=== PATIENT | male | born 1935 | race American Indian/Alaskan Native ===

== ENCOUNTER 2017-06-25 10:38 | Inpatient (IN) | payer MEDICARE ==
--- NOTE | 2017-06-25 11:39 | ED PDOC ---
Arrival/HPI - General Chief Complaint: Chest Pain Time Seen by Provider: 06/25/17 10:50 Historian: Patient - History of Present Illness Narrative History of Present Illness (Text): 06/25/17 10:47 A 82 year old male, whose past medical history includes hypertension, bronchitis , pneumonia, stomach CA (chemotherapy and radiation), DVT on Coudmadin, presents to the emergency department complaining of intermittent central chest pain for 4 days. Patient reports pain has increased in frequency for the past 2 days which comes and goes. Describes pain as "swallowing a walnut", 8/10 severity. Patient notes also experiencing cough with clear phlegm and some pain upon palpitation. Patient denies any fever, chills, vomiting, shortness of breath, or any other complaints at this time. Also, patient denies any history of cardiac stents, obtaining a stress test recently, nor does patient have a news camera operator. PMD: Dr. Worrell Time/Duration: < week (4 days, pain has increased in frequency for past 2 days) Symptom Onset: Sudden Symptom Course: Unchanged Severity Level: 8 Past Medical History - Provider Review Nursing Documentation Reviewed: Yes - Tetanus Immunization Tetanus Immunization: Up to Date - Cardiac Hx Hypertension: Yes - Musculoskeletal/Rheumatological Hx Back Pain: Yes Hx Herniated Disk: Yes Hx Spinal Stenosis: Yes - Psychiatric Hx Depression: No Hx Emotional Abuse: No Hx Physical Abuse: No Hx Substance Use: No - Past Surgical History Past Surgical History: No Previous - Surgical History Hx Orthopedic Surgery: Yes Other/Comment: 1997 tumor from bladder removed - Suicidal Assessment Feels Threatened In Home Enviroment: No Family/Social History - Physician Review Nursing Documentation Reviewed: Yes Family/Social History: No Known Family HX Smoking Status: Never Smoked Hx Alcohol Use: No Amount per day: 6 Hx Substance Use: No Hx Substance Use Treatment: No Allergies/Home Meds Allergies/Adverse Reactions: Allergies No Known Allergies Allergy (Verified 03/31/16 14:28) Home Medications: Home Meds Medication Instructions Recorded Confirmed Aspirin [Adult Low Dose Aspirin EC] 162 mg PO DAILY 06/25/17 06/25/17 Atorvastatin [Lipitor] 40 mg PO DAILY 06/25/17 06/25/17 Finasteride [Proscar] 5 mg PO DAILY 06/25/17 06/25/17 Gabapentin [Neurontin] 100 mg PO BID 06/25/17 06/25/17 Montelukast [Singulair] 10 mg PO DAILY 06/25/17 06/25/17 Warfarin [Coumadin] 5 mg PO DAILY 06/25/17 06/25/17 amLODIPine [Norvasc] 5 mg PO DAILY 06/25/17 06/25/17 Review of Systems - Physician Review All systems were reviewed & negative as marked: Yes - Review of Systems Constitutional: absent: Fevers, Night Sweats Respiratory: Cough (coughing with clera phlegm ). absent: SOB Cardiovascular: Chest Pain (intermittent central chest pain described as "swallowing a walnut"; 8/10 severity) Gastrointestinal: Abdominal Pain (epigastric pain to palpation). absent: Vomiting Physical Exam Vital Signs Reviewed: Yes Vital Signs Temp Pulse Resp BP Pulse Ox 06/25/17 10:49 97.8 F 76 16 145/97 H 100 Temperature: Afebrile Blood Pressure: Normal Pulse: Regular Respiratory Rate: Normal Appearance: Positive for: Other (thin) Pain Distress: None Mental Status: Positive for: Alert and Oriented X 3 - Systems Exam Head: Present: Atraumatic, Normocephalic Pupils: Present: PERRL Extroacular Muscles: Present: EOMI Conjunctiva: Present: Normal Mouth: Present: Moist Mucous Membranes Neck: Present: Normal Range of Motion Respiratory/Chest: Present: Clear to Auscultation, Good Air Exchange. No: Respiratory Distress, Accessory Muscle Use Cardiovascular: Present: Murmurs (2/6 murmur), Irregular Rhythm Abdomen: Present: Other (epigastric pain upon palpation) Back: Present: Normal Inspection Upper Extremity: Present: Normal Inspection. No: Cyanosis, Edema Lower Extremity: Present: Edema (trace edemea b/l) Neurological: Present: GCS=15, CN II-XII Intact, Speech Normal Skin: Present: Warm, Dry, Normal Color. No: Rashes Psychiatric: Present: Alert, Oriented x 3, Normal Insight, Normal Concentration Medical Decision Making ED Course and Treatment: 06/25/17 10:52 Impression: 82 year old male with intermittent central chest pain. Physical exam shows 2/6 murmur with irregularly irregular rhythm; trace edema b/l in legs ; epigastric pain to palpation; patient appears thin and of stated age. Differential Diagnosis included but are not limited to: Esophogitis vs. Worsening Mestasizing Cancer vs. Aortic dissection vs. New Onset Atrial Fibrillation. Plan: -- EKG -- Chest X-ray -- Labs -- Aspirin -- Nitroglycerin -- Reassess and disposition Prior Visits: Notes and results from previous visits were reviewed. Patient was last seen in the emergency department on 03/31/2016 for on and off coughing. Patient was d/c home. Progress Notes: EKG: Ordered, reviewed, and independently interpreted the EKG. Rate : 77 BPM Rhythm : Sinus rhythm Interpretation : Few PVCs, irregularly irregular, multi focal atopic. Comparison : No previous EKG for comparison. 06/25/17 11:40 Patient experiencing relief from Nitroglcerin. mild anemia will admit for cheat pain obs due with likely cardiac 06/25/17 12:54 - Lab Interpretations Lab Results: 06/25/17 12:40 06/25/17 11:35 Lab Results 06/25/17 12:40: WBC 3.3 L D, RBC 3.99, Hgb 12.2 L, Hct 37.5 L, MCV 94.0, MCH 30.6, MCHC 32.5, RDW 14.6 H, Plt Count 99 L, MPV 9.5, Gran % 61.3, Lymph % (Auto ) 10.1 L, [place] % (Auto) 14.0 H, Eos % (Auto) 14.3 H, Baso % (Auto) 0.3, Gran # 2.01, Lymph # 0.3 L, [place] # 0.5, Eos # 0.5, Baso # 0.01 06/25/17 11:35: Sodium 142, Potassium 4.4, Chloride 108 H, Carbon Dioxide 26, Anion Gap 12, BUN 30 H, Creatinine 1.4, Est GFR ( Amer) 59, Est GFR (Non- Af Amer) 48, Random Glucose 146 H, Calcium 9.1, Lactate Dehydrogenase 760 H, Total Creatine Kinase 175, Troponin I < 0.01 06/25/17 11:35: PT 45.4 H, INR 4.01 H*, APTT 44.7 H I have reviewed the lab results: Yes - RAD Interpretation Radiology Orders: 06/25/17 10:52 CHEST TWO VIEWS (PA/LAT) [RAD] Stat - Medication Orders Current Medication Orders: Nitroglycerin (Nitrostat Sl Tab) 0.4 mg SL Q5M PRN PRN Reason: Pain, moderate (4-7) Stop: 06/25/17 23:59 Last Admin: 06/25/17 11:10 Dose: 0.4 mg Discontinued Medications Aspirin (Aspirin Chewable) 324 mg PO STAT STA Stop: 06/25/17 10:54 Last Admin: 06/25/17 11:10 Dose: 162 mg Comments: Dose cut down to 162 mg As per verbal order from Dr. Aguilar. - Scribe Statement The provider has reviewed the documentation as recorded by the Sajan Welch Provider Scribe Attestation: All medical record entries made by the Scribe were at my direction and personally dictated by me. I have reviewed the chart and agree that the record accurately reflects my personal performance of the history, physical exam, medical decision making, and the department course for this patient. I have also personally directed, reviewed, and agree with the discharge instructions and disposition. Disposition/Present on Arrival - Present on Arrival Any Indicators Present on Arrival: No History of DVT/PE: Yes History of Uncontrolled Diabetes: No Urinary Catheter: No History of Decub. Ulcer: No History Surgical Site Infection Following: None - Disposition Have Diagnosis and Disposition been Completed?: Yes Diagnosis: Chest pain Disposition: HOSPITALIZED Disposition Time: 13:21 Patient Plan: Observation Condition: GOOD Discharge Instructions (ExitCare): Chest Pain (ED) Referrals: Nohemi Marie MD [Primary Care Provider] - Follow up with primary Forms: [employer] ([place])
[2017-06-25 12:06] LABS: CALCIUM 9.1 mg/dL (8.4-10.5)
[2017-06-25 12:12] LABS: BLOOD UREA NITROGEN 30 mg/dL (7-21); GFR AFRICAN-AMERICAN 59; GFR NON-AFRICAN AMERICAN 48
[2017-06-25 12:14] LABS: PARTIAL THROMBOPLASTIN TIME 44.7 Seconds (25.1-36.5); PROTHROMBIN TIME 45.4 SECONDS (9.4-12.5); TROPONIN I < 0.01 ng/mL
[2017-06-25 12:16] LABS: INR 4.01 (0.93-1.08)
[2017-06-25 12:52] LABS: BASO # 0.01 K/mm3 (0.0-2.0); BASO % 0.3 % (0.0-3.0); EOS # 0.5 (0.0-0.7); EOS % 14.3 % (1.5-5.0); GRAN # 2.01 (1.4-6.5); GRAN % 61.3 % (50.0-68.0); HEMOGLOBIN 12.2 g/dL (14.0-18.0); LYMPH # 0.3 (1.2-3.4); LYMPH % 10.1 % (22.0-35.0); MEAN CORPUSCULAR HEMOGLOBIN 30.6 pg (25.0-35.0); MEAN CORPUSCULAR HGB CONC 32.5 g/dl (31.0-37.0); MEAN PLATELET VOLUME 9.5 fl (7.0-11.0); MONO # 0.5 (0.1-0.6); RBC 3.99 10^6/uL (3.5-6.1); RED CELL DISTRIBUTION WIDTH 14.6 % (11.5-14.5); WHITE BLOOD COUNT 3.3 10^3/ul (4.5-11.0)
--- NOTE | 2017-06-25 13:21 | RAD ---
HISTORY: COMPARISON: 03/31/2016 TECHNIQUE: Chest PA and lateral FINDINGS: LINES AND TUBES: None. LUNG AND PLEURA: The lungs are well inflated and clear. HEART AND MEDIASTINUM: The heart is not enlarged. There is unfolding of the aorta. The hilar and mediastinal contours are within normal limits. SKELETAL STRUCTURES: The bony structures are within normal limits for the patient's age. VISUALIZED UPPER ABDOMEN: Normal. OTHER FINDINGS: None. IMPRESSION: No active pulmonary disease.
--- NOTE | 2017-06-25 15:21 | CP.PCM.HP ---
<Arnulfo Keith - Last Filed: 06/25/17 15:00> History of Present Illness - History of Present Illness History of Present Illness: CC: Chest Pain HPI: Pt is an 82 yo male with PMH of HTN, DM, bronchitis, pneumonia, DVT on coumadin, bladder CA, and gastric carcinoma currently being treated with chemo and radiation presents with a 7 day history of mid-sternal chest pain. Pt states that pain does not radiate and is intermittent with increased frequency over the last 2 days. Chest pain is not worsened with exertion. Pt also complains of difficulty swallowing and feels like he is "swallowing a walnut". Pt states that difficulty in swallowing started about 3 weeks ago, which was concurrent with the start of his radiation therapy for gastric CA. The gastric CA was diagnosed 1 year ago, in which he is being treated with chemo and radiation. Pt states that sometimes it feels like it starts in his epigastric region and moves upwards into his sternum. Pt also states that epigastric pain is worsened by PO intake of both solids and liquids and subsequently has eaten less over the last 3 weeks. Overall, patient states he has lost 30 lbs since his diagnosis of gastric CA. Pt states that he has tried using Alkaseltzer, which improves his symptoms for only 15 minutes. Pt admits to decreased taste 2/ 2 radiation therapy. Pt denies pain in his esophagus or neck region. Patient denies any nausea, vomiting, diarrhea, fever, chills, MORENO, or dizziness. PMH: As above PSH: Bladder CA resection, Left index fracture repair All: NKDA FHx: Non-contributory SH: Former 1/2 ppd smoker for 40 yrs (quit 1997), denied EtOH and illicit drug use PMD: Raoul Sultana Onc: Kath Matos Present on Admission - Present on Admission Any Indicators Present on Admission: No Review of Systems - Review of Systems Review of Systems: 12 point ROS reviewed and is negative other than what is stated in HPI. Past Patient History - Tetanus Immunizations Tetanus Immunization: Up to Date - Past Social History Smoking Status: Never Smoked - CARDIAC Hx Hypertension: Yes - MUSCULOSKELETAL/RHEUMATOLOGICAL Hx Back Pain: Yes Hx Herniated Disk: Yes Hx Spinal Stenosis: Yes - PSYCHIATRIC Hx Depression: No Hx Emotional Abuse: No Hx Physical Abuse: No Hx Substance Use: No - SURGICAL HISTORY Hx Orthopedic Surgery: Yes Other/Comment: 1997 tumor from bladder removed Meds Allergies/Adverse Reactions: Allergies Allergy/AdvReac Type Severity Reaction Status Date / Time No Known Allergies Allergy Verified 03/31/16 14:28 Physical Exam - Constitutional Appears: No Acute Distress - Head Exam Head Exam: NORMAL INSPECTION - Eye Exam Eye Exam: Normal appearance - ENT Exam ENT Exam: Normal Exam - Neck Exam Neck exam: Positive for: Normal Inspection - Respiratory Exam Respiratory Exam: Clear to Auscultation Bilateral. absent: Accessory Muscle Use , Rales, Rhonchi, Wheezes, Respiratory Distress - Cardiovascular Exam Cardiovascular Exam: Irregular Rhythm, +S1, +S2. absent: Diastolic murmur, Gallop, Rubs, Systolic Murmur - GI/Abdominal Exam GI & Abdominal Exam: Soft. absent: Distended, Guarding, Organomegaly, Rebound, Tenderness - Extremities Exam Extremities exam: Positive for: normal inspection - Back Exam Back exam: NORMAL INSPECTION - Neurological Exam Neurological exam: Alert, Oriented x3 - Psychiatric Exam Psychiatric exam: Normal Affect, Normal Mood - Skin Skin Exam: Dry, Intact, Normal Color, Warm Results - Vital Signs Recent Vital Signs: Last Vital Signs Temp 97.8 F 06/25/17 10:49 Pulse 76 06/25/17 14:43 Resp 16 06/25/17 14:43 BP 136/76 06/25/17 14:43 Pulse Ox 99 06/25/17 14:43 - Labs Result Diagrams: 06/25/17 12:40 06/25/17 11:35 Assessment & Plan - Assessment and Plan (Free Text) Assessment: 82 yo M with PMH HTN, DM, bronchitis, pneumonia, DVT on coumadin, bladder CA, and gastric carcinoma currently being treated with chemo and radiation admitted for evaluation and treatment for CP r/o ACS and dysphagia likely 2/2 radiation therapy. Plan: 1. CP r/o ACS - Cardio consulted - Repeat EKG - Troponin x1 negative, f/u trend x2 - Lipid panel, HgbA1c, Echo ordered - ASA 81 mg daily - Lipitor 40 mg daily 2. Dysphagia 2/2 radiation therapy - GI consulted - Per oncology, no radiation therapy for 1 week, f/u with Dr. Matos as outpatient - Pepcid - Morphine for severe pain 3. Atrial Fibrillation - EKG showed a-fib, will repeat EKG - Lopressor 5 mg IVP BID - No AC at this time due to supratherapeutic INR - TSH ordered 4. R/o Aortic Aneurysm - CXR showed unfolding of aorta - CT chest without contrast due to high-normal creatinine 5. Supratherapeutic INR - Anticoaguation due to h/o DVT - Hold Coumadin - Monitor INR, resume with INR is therapeutic 6. HTN - Cont Norvasc GI/DVT PPx - Pepcid - No AC at this time due to supratherapeutic INR Pt seen and discussed in detail with Dr. Noyola. Danny Keith, PGY1 <Skip Noyola B - Last Filed: 06/26/17 14:57> Results - Vital Signs Recent Vital Signs: Last Vital Signs Temp 98.6 F 06/26/17 12:00 Pulse 66 06/26/17 12:00 Resp 18 06/26/17 12:00 BP 128/86 06/26/17 12:00 Pulse Ox 99 06/26/17 06:00 - Labs Result Diagrams: 06/26/17 05:50 06/26/17 05:50 Labs: Laboratory Results - last 24 hr 06/25/17 06/25/17 06/25/17 15:30 17:30 20:05 WBC RBC Hgb Hct MCV MCH MCHC RDW Plt Count MPV PT INR APTT Sodium Potassium Chloride Carbon Dioxide Anion Gap BUN Creatinine Est GFR ( Amer) Est GFR (Non-Af Amer) POC Glucose (mg/dL) 72 Random Glucose Hemoglobin A1c 6.3 Calcium Total Bilirubin AST ALT Alkaline Phosphatase Troponin I 0.02 D Total Protein Albumin Globulin Albumin/Globulin Ratio 06/25/17 06/26/17 06/26/17 21:22 05:50 05:50 WBC 2.8 L* RBC 4.01 Hgb 12.1 L Hct 37.1 L MCV 92.5 MCH 30.2 MCHC 32.6 RDW 14.6 H Plt Count 98 L MPV 9.7 PT INR APTT Sodium 143 Potassium 4.4 Chloride 108 H Carbon Dioxide 26 Anion Gap 13 BUN 24 H Creatinine 1.4 Est GFR ( Amer) 59 Est GFR (Non-Af Amer) 48 POC Glucose (mg/dL) 87 Random Glucose 99 Hemoglobin A1c Calcium 9.1 Total Bilirubin 0.6 AST 32 ALT 33 Alkaline Phosphatase 71 Troponin I < 0.01 D Total Protein 6.7 Albumin 3.6 Globulin 3.1 Albumin/Globulin Ratio 1.2 06/26/17 06/26/17 05:50 07:41 WBC RBC Hgb Hct MCV MCH MCHC RDW Plt Count MPV PT 47.5 H INR 4.19 H* APTT 41.0 H Sodium Potassium Chloride Carbon Dioxide Anion Gap BUN Creatinine Est GFR ( Amer) Est GFR (Non-Af Amer) POC Glucose (mg/dL) 79 Random Glucose Hemoglobin A1c Calcium Total Bilirubin AST ALT Alkaline Phosphatase Troponin I Total Protein Albumin Globulin Albumin/Globulin Ratio Attending/Attestation - Attestation I have personally seen and examined this patient.: Yes I have fully participated in the care of the patient.: Yes I have reviewed all pertinent clinical information: Yes Notes (Text): I have seen and examined the patient at bedside. 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 He feels as if he is swallowing a walnut. Patient states that he has to drink lot of water or liquids to push food down. Will do work up for ACS. EKG was reviewed. Will consult GI. Primary oncologist was consulted who is planning to hold off on radiation for at least 1 week. Upon discharge patient will follow up with Dr Raoul Sultana and Dr Kath Matos. Dr Skip Noyola
[2017-06-25 15:28] LABS: HDL CHOLESTEROL 50 mg/dL (29-60)
[2017-06-25] MEDS ORDERED: Morphine 2 mg/ml ISec IVP PRN (15:29)
[2017-06-25 15:38] LABS: LDL CHOLESTEROL 39 mg/dL (0-129)
[2017-06-25 16:46] VITALS: BMI 25.0
--- NOTE | 2017-06-25 17:34 | CARD ---
APPROVED REPORT EKG Measurement Heart [id number] <Conclusion> Sinus rhythm with premature atrial complexes Left axis deviation Inferior infarct, age undetermined Abnormal ECG
--- NOTE | 2017-06-25 17:40 | CARD ---
APPROVED REPORT EKG Measurement Heart [id number] <Conclusion> sinus rhythm with Atrial bigeminy Inferior infarct, age undetermined Possible Anterior infarct, age undetermined Abnormal ECG
[2017-06-25] MEDS ORDERED: Metoprolol 1 mg/ml Inj IVP SCH (18:00)
--- NOTE | 2017-06-26 01:01 | CON ---
DATE: 06/25/2017 LOCATION: Room 373, bed 2. REASON FOR CONSULTATION: Chest pain. HISTORY OF PRESENT ILLNESS: The patient is an 82-year-old male who known to have gastric carcinoma, completed radiation therapy, still getting chemotherapy, history of DVT, on Coumadin, hypertension, diabetes, admitted with history that since last seven days or so the patient is getting chest pain. Chest pain starts in the lower one third of the sternum and travels downward to the epigastrium. Once the pain reaches epigastrium, it disappears, a total duration of pain is around 1 minute or so and it feels like as if solid thing is traveling lower one third of sternum to the epigastrium, it happens six to seven times a day. Sometimes, he feels nausea, but denies any vomiting. No history of black stools or diarrhea. Also he feels same pain sometime on deep breathing and as well as swallowing. Denies any relation of this chest pain to exertion. The patient known to have diabetes and high blood pressure since last two years. PAST MEDICAL HISTORY: Positive for carcinoma of the stomach, finished radiation therapy, getting chemotherapy, diabetes mellitus, high blood pressure, 15 years ago, he had tumor from the urinary bladder removed. According to the patient, he was told it was not cancer. He states he has twice endoscopy. PERSONAL HISTORY: He used to smoke half-pack a day till 1997. He used to drink heavy till 25 years ago, stopped since then. ALLERGIES: DENIES ANY ALLERGIES. MEDICATION AT HOME: The patient was taking Proscar 5 mg daily, warfarin 5 mg daily, Neurontin 100 mg b.i.d., Lipitor 40 mg daily, Norvasc 5 mg daily, Singulair 10 mg daily, aspirin adult low dose 162 mg daily. REVIEW OF SYSTEMS: All the system reviewed positive mentioned in the history otherwise negative. PHYSICAL EXAMINATION: VITAL SIGNS: Blood pressure 130/70, respirations 18, pulse 63, and temperature 98.2. HEENT: Normocephalic. Eyes; pupils are normal. Conjunctivae normal. NECK: JVP low. Carotids equal. THORAX: AP diameter normal. LUNGS: Clear. CARDIOVASCULAR: S1 and S2. ABDOMEN: Tenderness in the epigastric area. EXTREMITIES: No clubbing. No cyanosis. LABORATORY DATA: WBC 3.3, hemoglobin 12.2, hematocrit 37.5, and platelet 99. Sodium 142, potassium 4.4, BUN 30, and creatinine 1.4, calcium 9.1. Random glucose 146. Repeat fingerstick glucose 72. Troponin less than 0.01. TSH 2.09, cholesterol 108, triglyceride 59, LDL 39, HDL 50. EKG shows regular sinus rhythm with left anterior hemiblock. Chest x-ray, no active pulmonary disease. Prothrombin done 45.4, INR 4.01, PTT 44.7. DIAGNOSES: Chest pain, which seem to be of gastrointestinal region, most likely episodes of artificial spasm. Carcinoma of the stomach status post radiation therapy, still getting chemotherapy, hypertension, diabetes mellitus, history of thrombophlebitis, anemia, leukopenia, and thrombocytopenia. Elevated PT/INR. PLAN: The patient is on aspirin 81 mg daily, Lipitor 40 mg daily, Neurontin 100 mg b.i.d., amlodipine 5 mg daily, Proscar 5 mg daily, Singulair 10 mg daily. The patient is on Lopressor 5 mg IV b.i.d., we will discontinue it. notes states that the patient on EKG has atrial fibrillation, but EKG, which I reviewed showed sinus rhythm with PAC's, so we will discontinue Lopressor 5 mg IV b.i.d. Echo has been already requested, so we will follow the echo report. In the meantime, GI consult has been also requested. I agree with that. This pain is of GI region. We will continue to follow with you. Carrie Haley MD
[2017-06-26 07:20] LABS: PROTHROMBIN TIME 47.5 SECONDS (9.4-12.5)
[2017-06-26 07:21] LABS: HEMOGLOBIN 12.1 g/dL (14.0-18.0); MEAN CELL VOLUME 92.5 fl (80.0-105.0); MEAN CORPUSCULAR HEMOGLOBIN 30.2 pg (25.0-35.0); MEAN CORPUSCULAR HGB CONC 32.6 g/dl (31.0-37.0); MEAN PLATELET VOLUME 9.7 fl (7.0-11.0); RBC 4.01 10^6/uL (3.5-6.1); RED CELL DISTRIBUTION WIDTH 14.6 % (11.5-14.5)
[2017-06-26 07:27] LABS: ALB/GLOB RATIO 1.2 (1.1-1.8); ALBUMIN 3.6 g/dL (3.0-4.8); ALT/SGPT 33 U/L (7-56); AST/SGOT 32 U/L (17-59); BLOOD UREA NITROGEN 24 mg/dL (7-21); CALCIUM 9.1 mg/dL (8.4-10.5); GFR AFRICAN-AMERICAN 59; GFR NON-AFRICAN AMERICAN 48
[2017-06-26 07:30] LABS: TROPONIN I < 0.01 ng/mL
[2017-06-26 07:33] LABS: INR 4.19 (0.93-1.08)
[2017-06-26 07:55] LABS: WHITE BLOOD COUNT 2.8 10^3/ul (4.5-11.0)
--- NOTE | 2017-06-26 09:19 | CT ---
PROCEDURE: CT Chest without contrast HISTORY: r/o aortic aneurysm COMPARISON: None. TECHNIQUE: Contiguous axial images were obtained through the chest without intravenous contrast enhancement. Sagittal and coronal reconstructions were performed. Radiation dose (DLP): mGy-cm. This CT exam was performed using one or more of the following dose reduction techniques: Automated exposure control, adjustment of the mA and/or kV according to patient size, and/or use of iterative reconstruction technique. FINDINGS: LUNGS: There is no focal consolidation. No lung nodules. Finding suggestive of COPD MEDIASTINUM: The thoracic aorta is mildly dilated and tortuous. The ascending aorta measures 4 cm and the descending 3 cm in diameter. There is no focal aneurysm Normal sized heart. No lymphadenopathy. PLEURA: No pleural fluid. No pneumothorax. BONES: No fracture. No destructive lesion. UPPER ABDOMEN: Multiple gallstones OTHER FINDINGS: None. IMPRESSION: Mildly dilated and tortuous aorta. No focal aneurysm
--- NOTE | 2017-06-26 11:46 | CP.PCM.CON ---
<Evelyne Lea - Last Filed: 06/26/17 14:32> History of Present Illness - History of Present Illness History of Present Illness: PGY4 Initial GI Consult Marshall Padilla is an 82 yo male with a hx of HTN, DM, bronchitis, pneumonia, DVT on coumadin, bladder CA, and gastric carcinoma currently being treated with chemo and radiation who presents with epigastric pain upon eating. He notes that the pain started 2 weeks ago, but progressively worsened. Pt states that pain does not radiate and is intermittent after solid food consumption. Pt also complains of difficulty swallowing and feels like he is "swallowing a walnut". As per pt, He was diagnoised with gastric cancer 6 months ago. He has been getting radiation therapy with chemo. Last radiation therapy was 1 week prior and he states that he had >10 already. He was able to eat a heart healthy diet in the AM without difficulty. No dysphagia noted with liquids. Overall, patient states he has lost 30 lbs since his diagnosis of gastric CA. Pt states that he has tried using Alkaseltzer, which improves his symptoms for only 15 minutes. Pt admits to decreased taste 2/2 radiation therapy. Pt denies pain in his esophagus or neck region. Patient denies any nausea, vomiting, diarrhea, fever, chills, MORENO, or dizziness. PMH: As above PSH: Bladder CA resection, Left index fracture repair FHx: Non-contributory SH: Former 1/2 ppd smoker for 40 yrs (quit 1997), denied EtOH and illicit drug use ROS: 12point ROS conducted, neg other than above Past Patient History - Tetanus Immunizations Tetanus Immunization: Up to Date - Past Social History Smoking Status: Former Smoker - CARDIAC Hx Hypertension: Yes - PULMONARY Hx Respiratory Disorders: No - NEUROLOGICAL Hx Neurological Disorder: No - HEENT Hx HEENT Problems: No - RENAL Hx Chronic Kidney Disease: No - ENDOCRINE/METABOLIC Hx Diabetes Mellitus Type 2: Yes - HEMATOLOGICAL/ONCOLOGICAL Hx Chemotherapy: Yes - INTEGUMENTARY Hx Dermatological Problems: No - MUSCULOSKELETAL/RHEUMATOLOGICAL Hx Falls: No Hx Spinal Stenosis: Yes - GASTROINTESTINAL Hx Gastrointestinal Disorders: Yes Other/Comment: bladder ca,gastric carcinoma - GENITOURINARY/GYNECOLOGICAL Hx Genitourinary Disorders: No - PSYCHIATRIC Hx Psychophysiologic Disorder: No Hx Substance Use: No - SURGICAL HISTORY Hx Surgeries: Yes Other/Comment: 1997 tumor from bladder removed Meds Allergies/Adverse Reactions: Allergies Allergy/AdvReac Type Severity Reaction Status Date / Time No Known Allergies Allergy Verified 03/31/16 14:28 - Medications Medications: Current Medications Acetaminophen (Tylenol 325mg Tab) 650 mg PO Q6H PRN PRN Reason: Pain, Mild (1-3) Amlodipine Besylate (Norvasc) 5 mg PO DAILY [facility] Last Admin: 06/26/17 11:22 Dose: 5 mg Aspirin (Ecotrin) 81 mg PO DAILY [facility] Last Admin: 06/26/17 11:22 Dose: 81 mg Atorvastatin Calcium (Lipitor) 40 mg PO DIN [facility] Famotidine (Pepcid) 40 mg PO HS [facility] Last Admin: 06/25/17 21:48 Dose: 40 mg Finasteride (Proscar) 5 mg PO HS [facility] Last Admin: 06/25/17 21:48 Dose: 5 mg Gabapentin (Neurontin) 100 mg PO BID [facility] PRN Reason: Protocol Last Admin: 06/26/17 11:22 Dose: 100 mg Montelukast Sodium (Singulair) 10 mg PO DAILY [facility] Last Admin: 06/26/17 11:22 Dose: 10 mg Morphine Sulfate (Morphine) 1 mg IVP Q6H PRN PRN Reason: Pain, severe (8-10) Results - Vital Signs Recent Vital Signs: Last Vital Signs Temp 98.6 F 06/26/17 06:00 Pulse 70 06/26/17 11:22 Resp 20 06/26/17 06:00 BP 119/86 06/26/17 11:22 Pulse Ox 99 06/26/17 06:00 - Labs Result Diagrams: 06/26/17 05:50 06/26/17 05:50 Labs: Laboratory Results - last 24 hr 06/25/17 06/25/17 06/25/17 15:30 17:30 20:05 WBC RBC Hgb Hct MCV MCH MCHC RDW Plt Count MPV PT INR APTT Sodium Potassium Chloride Carbon Dioxide Anion Gap BUN Creatinine Est GFR ( Amer) Est GFR (Non-Af Amer) POC Glucose (mg/dL) 72 Random Glucose Hemoglobin A1c 6.3 Calcium Total Bilirubin AST ALT Alkaline Phosphatase Troponin I 0.02 D Total Protein Albumin Globulin Albumin/Globulin Ratio 06/25/17 06/26/17 06/26/17 21:22 05:50 05:50 WBC 2.8 L* RBC 4.01 Hgb 12.1 L Hct 37.1 L MCV 92.5 MCH 30.2 MCHC 32.6 RDW 14.6 H Plt Count 98 L MPV 9.7 PT INR APTT Sodium 143 Potassium 4.4 Chloride 108 H Carbon Dioxide 26 Anion Gap 13 BUN 24 H Creatinine 1.4 Est GFR ( Amer) 59 Est GFR (Non-Af Amer) 48 POC Glucose (mg/dL) 87 Random Glucose 99 Hemoglobin A1c Calcium 9.1 Total Bilirubin 0.6 AST 32 ALT 33 Alkaline Phosphatase 71 Troponin I < 0.01 D Total Protein 6.7 Albumin 3.6 Globulin 3.1 Albumin/Globulin Ratio 1.2 06/26/17 06/26/17 05:50 07:41 WBC RBC Hgb Hct MCV MCH MCHC RDW Plt Count MPV PT 47.5 H INR 4.19 H* APTT 41.0 H Sodium Potassium Chloride Carbon Dioxide Anion Gap BUN Creatinine Est GFR ( Amer) Est GFR (Non-Af Amer) POC Glucose (mg/dL) 79 Random Glucose Hemoglobin A1c Calcium Total Bilirubin AST ALT Alkaline Phosphatase Troponin I Total Protein Albumin Globulin Albumin/Globulin Ratio Assessment & Plan - Assessment and Plan (Free Text) Assessment: Marshall Padilla is a 82M w/ hx of gastric cancer who presents to the ER with complaints of dysphagia Dysphagia, r/o stricture, PUD, malignancy. DDx: motility GERD Constipation Gastric Carcinoma? Plan: -suposed to get an EGD today, but pt ate in the AM -continue full liquids -NPO after midnight -continue PPI zofran PRN -will do EGD tomorrow, pending pt's dicussion with -will try to get records from oncologist Will D/W Dr. Barger <Rafael Barger - Last Filed: 06/26/17 14:56> Meds - Medications Medications: Current Medications Acetaminophen (Tylenol 325mg Tab) 650 mg PO Q6H PRN PRN Reason: Pain, Mild (1-3) Amlodipine Besylate (Norvasc) 5 mg PO DAILY [facility] Last Admin: 06/26/17 11:22 Dose: 5 mg Aspirin (Ecotrin) 81 mg PO DAILY [facility] Last Admin: 06/26/17 11:22 Dose: 81 mg Atorvastatin Calcium (Lipitor) 40 mg PO DIN [facility] Famotidine (Pepcid) 40 mg PO HS [facility] Last Admin: 06/25/17 21:48 Dose: 40 mg Finasteride (Proscar) 5 mg PO HS [facility] Last Admin: 06/25/17 21:48 Dose: 5 mg Gabapentin (Neurontin) 100 mg PO BID [facility] PRN Reason: Protocol Last Admin: 06/26/17 11:22 Dose: 100 mg Montelukast Sodium (Singulair) 10 mg PO DAILY [facility] Last Admin: 06/26/17 11:22 Dose: 10 mg Morphine Sulfate (Morphine) 1 mg IVP Q6H PRN PRN Reason: Pain, severe (8-10) Results - Vital Signs Recent Vital Signs: Last Vital Signs Temp 98.6 F 06/26/17 12:00 Pulse 66 06/26/17 12:00 Resp 18 06/26/17 12:00 BP 128/86 06/26/17 12:00 Pulse Ox 99 06/26/17 06:00 - Labs Result Diagrams: 06/26/17 05:50 06/26/17 05:50 Labs: Laboratory Results - last 24 hr 06/25/17 06/25/17 06/25/17 15:30 17:30 20:05 WBC RBC Hgb Hct MCV MCH MCHC RDW Plt Count MPV PT INR APTT Sodium Potassium Chloride Carbon Dioxide Anion Gap BUN Creatinine Est GFR ( Amer) Est GFR (Non-Af Amer) POC Glucose (mg/dL) 72 Random Glucose Hemoglobin A1c 6.3 Calcium Total Bilirubin AST ALT Alkaline Phosphatase Troponin I 0.02 D Total Protein Albumin Globulin Albumin/Globulin Ratio 06/25/17 06/26/17 06/26/17 21:22 05:50 05:50 WBC 2.8 L* RBC 4.01 Hgb 12.1 L Hct 37.1 L MCV 92.5 MCH 30.2 MCHC 32.6 RDW 14.6 H Plt Count 98 L MPV 9.7 PT INR APTT Sodium 143 Potassium 4.4 Chloride 108 H Carbon Dioxide 26 Anion Gap 13 BUN 24 H Creatinine 1.4 Est GFR ( Amer) 59 Est GFR (Non-Af Amer) 48 POC Glucose (mg/dL) 87 Random Glucose 99 Hemoglobin A1c Calcium 9.1 Total Bilirubin 0.6 AST 32 ALT 33 Alkaline Phosphatase 71 Troponin I < 0.01 D Total Protein 6.7 Albumin 3.6 Globulin 3.1 Albumin/Globulin Ratio 1.2 06/26/17 06/26/17 05:50 07:41 WBC RBC Hgb Hct MCV MCH MCHC RDW Plt Count MPV PT 47.5 H INR 4.19 H* APTT 41.0 H Sodium Potassium Chloride Carbon Dioxide Anion Gap BUN Creatinine Est GFR ( Amer) Est GFR (Non-Af Amer) POC Glucose (mg/dL) 79 Random Glucose Hemoglobin A1c Calcium Total Bilirubin AST ALT Alkaline Phosphatase Troponin I Total Protein Albumin Globulin Albumin/Globulin Ratio Attending/Attestation - Attestation I have personally seen and examined this patient.: Yes I have fully participated in the care of the patient.: Yes I have reviewed all pertinent clinical information: Yes Notes (Text): 06/26/17 14:55 82 year old male with h/o gastric ca on chemo/xrt admitted with chest pain/ dysphagia. 1. Gastric cancer 2. Odynophagia Plan: -recommend protonix 40 mg IV BID -liquid diet today -npo after MN for egd tomorrow -hold coumadin -goal INR < 1.5 for procedure -likely to need FFP preop
--- NOTE | 2017-06-26 12:38 | CP.PCM.PN ---
<Arnulfo Keith - Last Filed: 06/26/17 12:34> Subjective - Date & Time of Evaluation Date of Evaluation: 06/26/17 Time of Evaluation: 12:35 - Subjective Subjective: Medicine Progress Note Pt seen and examined at bedside. No acute overnight events. Pt states that he tolerate diet well. However, he still has epigastric pain that radiates to sternum not related to PO intake. Pt denied SOB, nausea, vomiting, diarrhea, fever, chills, MORENO, or dizziness. Objective - Vital Signs/Intake and Output Vital Signs (last 24 hours): Temp Pulse Resp BP Pulse Ox 98.6 F 66 18 128/86 99 06/26/17 12:00 06/26/17 12:00 06/26/17 12:00 06/26/17 12:00 06/26/17 06:00 Intake and Output: 06/26/17 06/26/17 06:59 18:59 Intake Total 0 Output Total 450 Balance -450 - Medications Medications: Current Medications Acetaminophen (Tylenol 325mg Tab) 650 mg PO Q6H PRN PRN Reason: Pain, Mild (1-3) Amlodipine Besylate (Norvasc) 5 mg PO DAILY [facility] [place] Last Admin: 06/26/17 11:22 Dose: 5 mg Aspirin (Ecotrin) 81 mg PO DAILY [facility] [place] Last Admin: 06/26/17 11:22 Dose: 81 mg Atorvastatin Calcium (Lipitor) 40 mg PO DIN [facility] Famotidine (Pepcid) 40 mg PO HS [facility] [place] Last Admin: 06/25/17 21:48 Dose: 40 mg Finasteride (Proscar) 5 mg PO HS [facility] [place] Last Admin: 06/25/17 21:48 Dose: 5 mg Gabapentin (Neurontin) 100 mg PO BID [facility] [place] PRN Reason: Protocol Last Admin: 06/26/17 11:22 Dose: 100 mg Montelukast Sodium (Singulair) 10 mg PO DAILY [facility] [place] Last Admin: 06/26/17 11:22 Dose: 10 mg Morphine Sulfate (Morphine) 1 mg IVP Q6H PRN PRN Reason: Pain, severe (8-10) - Labs Labs: 06/26/17 05:50 06/26/17 05:50 PT 47.5 SECONDS (9.4-12.5) H 06/26/17 05:50 INR 4.19 (0.93-1.08) H* 06/26/17 05:50 APTT 41.0 Seconds (25.1-36.5) H 06/26/17 05:50 - Constitutional Appears: No Acute Distress - Head Exam Head Exam: NORMAL INSPECTION - Eye Exam Eye Exam: Normal appearance Pupil Exam: NORMAL ACCOMODATION - Neck Exam Neck Exam: Normal Inspection - Respiratory Exam Respiratory Exam: Clear to Ausculation Bilateral. absent: Accessory Muscle Use , Rales, Rhonchi, Wheezes, Respiratory Distress - Cardiovascular Exam Cardiovascular Exam: RRR, +S1, +S2. absent: Gallop, Rubs, Murmur - GI/Abdominal Exam GI & Abdominal Exam: Soft. absent: Distended, Guarding, Tenderness, Rebound - Extremities Exam Extremities Exam: Normal Inspection - Back Exam Back Exam: NORMAL INSPECTION - Neurological Exam Neurological Exam: Alert, Awake, Oriented x3 - Psychiatric Exam Psychiatric exam: Normal Affect, Normal Mood - Skin Skin Exam: Dry, Intact, Normal Color, Warm Assessment and Plan - Assessment and Plan (Free Text) Assessment: 82 yo M with PMH HTN, DM, bronchitis, pneumonia, DVT on coumadin, bladder CA, and gastric carcinoma currently being treated with chemo and radiation admitted for evaluation and treatment for CP r/o ACS and dysphagia likely 2/2 radiation therapy. Plan: 1. CP, ACS ruled out - Cardio consulted EKG read as normal sinus with PAC D/C Lopressor - Troponin x3 negative - Lipid panel, HgbA1c WNL - Echo ordered - ASA 81 mg daily - Lipitor 40 mg daily 2. Dysphagia 2/2 radiation therapy - GI consulted EGD tomorrow Liquids today, NPO after midnigt - Per oncology, no radiation therapy for 1 week, f/u with Dr. Matos as outpatient - Pepcid - Morphine for severe pain 3. Atrial Fibrillation, resolved - EKG as read by cardio shows NSR with PAC - D/C Lopressor - TSH WNL 4. R/o Aortic Aneurysm - CXR showed unfolding of aorta - CT chest showed mildly dilated and tortuous aorta - No intervention at this time, continue to monitor 5. Supratherapeutic INR - Anticoaguation due to h/o DVT - Hold Coumadin - Monitor INR, resume with INR is therapeutic 6. HTN - Cont Norvasc 7. H/o DVT - Hold coumadin at this time due to supratherapeutic INR GI/DVT PPx - Pepcid - No AC at this time due to supratherapeutic INR Pt seen and discussed in detail with Dr. Noyola. Danny Keith, PGY1 <Skip Noyola - Last Filed: 06/26/17 15:06> Objective - Vital Signs/Intake and Output Vital Signs (last 24 hours): Temp Pulse Resp BP Pulse Ox 98.6 F 66 18 128/86 99 06/26/17 12:00 06/26/17 12:00 06/26/17 12:00 06/26/17 12:00 06/26/17 06:00 Intake and Output: 06/26/17 06/26/17 06:59 18:59 Intake Total 0 540 Output Total 450 600 Balance -450 -60 - Medications Medications: Current Medications Acetaminophen (Tylenol 325mg Tab) 650 mg PO Q6H PRN PRN Reason: Pain, Mild (1-3) Amlodipine Besylate (Norvasc) 5 mg PO DAILY [facility] Last Admin: 06/26/17 11:22 Dose: 5 mg Aspirin (Ecotrin) 81 mg PO DAILY [facility] [place] Last Admin: 06/26/17 11:22 Dose: 81 mg Atorvastatin Calcium (Lipitor) 40 mg PO DIN [facility] Famotidine (Pepcid) 40 mg PO HS [facility] [place] Last Admin: 06/25/17 21:48 Dose: 40 mg Finasteride (Proscar) 5 mg PO HS [facility] Last Admin: 06/25/17 21:48 Dose: 5 mg Gabapentin (Neurontin) 100 mg PO BID [facility] PRN Reason: Protocol Last Admin: 06/26/17 11:22 Dose: 100 mg Montelukast Sodium (Singulair) 10 mg PO DAILY [facility] Last Admin: 06/26/17 11:22 Dose: 10 mg Morphine Sulfate (Morphine) 1 mg IVP Q6H PRN PRN Reason: Pain, severe (8-10) - Labs Labs: 06/26/17 05:50 06/26/17 05:50 PT 47.5 SECONDS (9.4-12.5) H 06/26/17 05:50 INR 4.19 (0.93-1.08) H* 06/26/17 05:50 APTT 41.0 Seconds (25.1-36.5) H 06/26/17 05:50 Attending/Attestation - Attestation I have personally seen and examined this patient.: Yes I have fully participated in the care of the patient.: Yes I have reviewed all pertinent clinical information, including history, physical exam and plan: Yes Notes (Text): I have seen and examined the patient at bedside. 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 He feels as if he is swallowing a walnut. Patient states that he has to drink lot of water or liquids to push food down. EKG revealed PAC. Cardiac enzymes negative. Echo pending. Cardio consult appreciated. Patient is scheduled for endoscopy tomorrow. Continue liquid diet. Continue to hold coumadin due to supratherapeutic INR. Primary oncologist was consulted who is planning to hold off on radiation for at least 1 week. Upon discharge patient will follow up with Dr Raoul Sultana and Dr Kath Matos. Dr Skip Noyola
--- NOTE | 2017-06-26 12:49 | PN ---
DATE: 06/26/2017 LOCATION: The patient is in room number 373, bed 2. REASON FOR CONSULTATION: Chest pain. SUBJECTIVE: The patient still complains of chest pain which starts from the lower one third of the sternum and goes down to the epigastrium lasting about 1 minute episode off and on, not related to the exertion. Denies any shortness of breath, palpitation or diaphoresis. Sometime he feel nausea. Denies any vomiting or melena. PHYSICAL EXAMINATION: VITAL SIGNS: Blood pressure of 119/86, respirations of 20, pulse of 70, and temperature of 98.6. HEENT: Head is normocephalic. Eyes: Pupils are normal. Conjunctivae normal. NECK: JVP low. Carotids are equal. THORAX: AP diameter normal. LUNGS: Clear. CARDIOVASCULAR: S1 and S2. ABDOMEN: Slight tenderness in the epigastric region. Bowel sounds are normal. EXTREMITIES: No clubbing. No cyanosis. LABORATORY DATA: WBC of 2.8, hemoglobin of 12.1, hematocrit of 37.1, and platelets of 98. Sodium of 143, potassium of 4.4, BUN of 24, creatinine of 1.4, and sugar is 79. AST and ALT are normal. Calcium and phosphorus are normal. Troponin is less than 0.01. Total protein and albumin are normal. Prothrombin time is 47.5, INR is 4.19, and PTT is 41.0. 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 The patient is on Coumadin therapy, prolonged PT and INR. PLAN: The patient's Coumadin has not been ordered because of prolonged PT and INR. The patient is on aspirin 81 mg daily, Lipitor 40 daily, Neurontin 100 mg b.i.d., amlodipine 5 mg daily, Pepcid 40 mg at bedtime, Proscar 5 mg at bedtime, and Singulair 10 mg daily. The patient is going to have echocardiogram today and we will follow report of that once it is done. In the meantime, the patient has been already requested Gastroenterology consult. We will follow with you. Chest pain is at GI region. Carrie Haley MD
--- NOTE | 2017-06-26 16:44 | CARD ---
APPROVED REPORT EXAM: Two-dimensional and M-mode echocardiogram with Doppler and color Doppler. INDICATION Chest Pain 2D DIMENSIONS Left Atrium (2D)4.0 (1.6-4.0cm)IVSd1.3 (0.7-1.1cm) LVDd3.7 (3.9-5.9cm)PWd1.5 (0.7-1.1cm) LVDs2.4 (2.5-4.0cm)FS (%) 34.9 % LVEF (%)64.9 (>50%) M-Mode DIMENSIONS Aortic Root3.40 (2.2-3.7cm)Aortic Cusp Exc.1.80 (1.5-2.0cm) Aortic Valve AoV Peak Wxhjinla498.0cm/Fran Peak GR.5mmHg Mitral Valve MV E Vknvaylj72.5cm/sMV A Xmlppbjm99.1cm/sE/A ratio0.8 TDI E/Lateral E'0.0E/Medial E'0.0 Tricuspid Valve TR Peak [id number] [id number] Peak Gr.46mmHg [id number] LEFT VENTRICLE The left ventricle is normal size. There is mild concentric left ventricular hypertrophy. The left ventricular function is normal. The left ventricular ejection fraction is within the normal range. There is normal LV segmental wall motion. Transmitral Doppler flow pattern is Grade I-abnormal relaxation pattern. RIGHT VENTRICLE The right ventricle is normal size. The right ventricle is mildly hypertrophied. The right ventricular systolic function is normal. ATRIA The left atrium size is normal. The right atrium size is normal. AORTIC VALVE The aortic valve is mildly thickened. No aortic regurgitation is present. There is no aortic valvular stenosis. MITRAL VALVE The mitral valve is mildly thickened. There is no mitral valve regurgitation noted. TRICUSPID VALVE There is moderate to severe tricuspid regurgitation. There is moderate to severe pulmonary hypertension. PULMONIC VALVE There is mild pulmonic valvular regurgitation. GREAT VESSELS The aortic root is mildly enlarged. The IVC is normal in size and collapses >50% with inspiration. <Conclusion> The left ventricle is normal size. There is mild concentric left ventricular hypertrophy. The left ventricular function is normal. The left ventricular ejection fraction is within the normal range. There is normal LV segmental wall motion. Transmitral Doppler flow pattern is Grade I-abnormal relaxation pattern. There is moderate to severe tricuspid regurgitation. There is moderate to severe pulmonary hypertension. The aortic root is mildly enlarged.
--- NOTE | 2017-06-26 16:54 | CARD ---
APPROVED REPORT EKG Measurement Heart [id number] <Conclusion> Normal sinus rhythm Left axis deviation Inferior infarct, age undetermined Abnormal ECG
[2017-06-27 05:23] LABS: HEMOGLOBIN 12.3 g/dL (14.0-18.0); MEAN CELL VOLUME 92.2 fl (80.0-105.0); MEAN CORPUSCULAR HEMOGLOBIN 30.9 pg (25.0-35.0); MEAN CORPUSCULAR HGB CONC 33.5 g/dl (31.0-37.0); MEAN PLATELET VOLUME 9.4 fl (7.0-11.0); RBC 3.98 10^6/uL (3.5-6.1); RED CELL DISTRIBUTION WIDTH 14.7 % (11.5-14.5); WHITE BLOOD COUNT 4.1 10^3/ul (4.5-11.0)
[2017-06-27 05:34] LABS: ALB/GLOB RATIO 1.1 (1.1-1.8); ALBUMIN 3.5 g/dL (3.0-4.8); CALCIUM 9.2 mg/dL (8.4-10.5)
[2017-06-27 05:41] LABS: INR 2.53 (0.93-1.08); PARTIAL THROMBOPLASTIN TIME 35.9 Seconds (25.1-36.5); PROTHROMBIN TIME 28.4 SECONDS (9.4-12.5)
[2017-06-27 11:30] VITALS: TEMP 98.8
[2017-06-27] MEDS ORDERED: Etomidate 40 MG/20 ML ML IV ONE (12:02)
[2017-06-27] MEDS ORDERED: Lidocaine 1% Inj (20ml) ONE (12:02)
[2017-06-27] MEDS ORDERED: Sodium Chloride 0.9% 1,000 ML IV SCH (12:30)
[2017-06-27] MEDS ORDERED: Pantoprazole 40 mg EC Tab PO SCH (13:00)
[2017-06-27 13:22] VITALS: RESP 16; O2SAT 99
--- NOTE | 2017-06-27 14:09 | CP.PCM.DIS ---
<Arnulfo Keith - Last Filed: 06/27/17 13:52> Provider - Provider Date of Admission: 06/26/17 11:57 Attending physician: Skip Noyola MD Primary care physician: Nohemi Marie Consults: Cardio: Artem GI: Lizandro Time Spent in preparation of Discharge (in minutes): 45 Hospital Course - Lab Results Lab Results: Most Recent Lab Values WBC 4.1 10^3/ul (4.5-11.0) L D 06/27/17 05:05 RBC 3.98 10^6/uL (3.5-6.1) 06/27/17 05:05 Hgb 12.3 g/dL (14.0-18.0) L 06/27/17 05:05 Hct 36.7 % (42.0-52.0) L 06/27/17 05:05 MCV 92.2 fl (80.0-105.0) 06/27/17 05:05 MCH 30.9 pg (25.0-35.0) 06/27/17 05:05 MCHC 33.5 g/dl (31.0-37.0) 06/27/17 05:05 RDW 14.7 % (11.5-14.5) H 06/27/17 05:05 Plt Count 88 10^3/uL (120.0-450.0) L 06/27/17 05:05 MPV 9.4 fl (7.0-11.0) 06/27/17 05:05 Gran % 61.3 % (50.0-68.0) 06/25/17 12:40 Lymph % (Auto) 10.1 % (22.0-35.0) L 06/25/17 12:40 Mesa % (Auto) 14.0 % (1.0-6.0) H 06/25/17 12:40 Eos % (Auto) 14.3 % (1.5-5.0) H 06/25/17 12:40 Baso % (Auto) 0.3 % (0.0-3.0) 06/25/17 12:40 Gran # 2.01 (1.4-6.5) 06/25/17 12:40 Lymph # 0.3 (1.2-3.4) L 06/25/17 12:40 Mesa # 0.5 (0.1-0.6) 06/25/17 12:40 Eos # 0.5 (0.0-0.7) 06/25/17 12:40 Baso # 0.01 K/mm3 (0.0-2.0) 06/25/17 12:40 PT 28.4 SECONDS (9.4-12.5) H 06/27/17 05:05 INR 2.53 (0.93-1.08) H 06/27/17 05:05 APTT 35.9 Seconds (25.1-36.5) 06/27/17 05:05 Sodium 144 mmol/L (132-148) 06/27/17 05:05 Potassium 4.7 mmol/L (3.6-5.0) 06/27/17 05:05 Chloride 109 mmol/L (98-107) H 06/27/17 05:05 Carbon Dioxide 27 mmol/L (21-33) 06/27/17 05:05 Anion Gap 13 (10-20) 06/27/17 05:05 BUN 22 mg/dL (7-21) H 06/27/17 05:05 Creatinine 1.4 mg/dl (0.8-1.5) 06/27/17 05:05 Est GFR ( Amer) 59 06/27/17 05:05 Est GFR (Non-Af Amer) 48 06/27/17 05:05 POC Glucose (mg/dL) 92 mg/dL (65-110) 06/27/17 07:23 Random Glucose 109 mg/dL (70-110) 06/27/17 05:05 Hemoglobin A1c 6.3 % (4.2-6.5) 06/25/17 15:30 Calcium 9.2 mg/dL (8.4-10.5) 06/27/17 05:05 Total Bilirubin 0.5 mg/dL (0.2-1.3) 06/27/17 05:05 AST 30 U/L (17-59) 06/27/17 05:05 ALT 33 U/L (7-56) 06/27/17 05:05 Alkaline Phosphatase 70 U/L (38-126) 06/27/17 05:05 Lactate Dehydrogenase 760 U/L (333-699) H 06/25/17 11:35 Total Creatine Kinase 175 U/L (35-230) 06/25/17 11:35 Troponin I < 0.01 ng/mL D 06/26/17 05:50 Total Protein 6.6 g/dL (5.8-8.3) 06/27/17 05:05 Albumin 3.5 g/dL (3.0-4.8) 06/27/17 05:05 Globulin 3.1 gm/dL 06/27/17 05:05 Albumin/Globulin Ratio 1.1 (1.1-1.8) 06/27/17 05:05 Triglycerides 59 mg/dL (35-160) 06/25/17 11:45 Cholesterol 108 mg/dL (130-200) L 06/25/17 11:45 LDL Cholesterol Direct 39 mg/dL (0-129) 06/25/17 11:45 HDL Cholesterol 50 mg/dL (29-60) 06/25/17 11:45 TSH 3rd Generation 2.09 mIU/mL (0.46-4.68) 06/25/17 11:45 Blood Type B POSITIVE 06/26/17 16:05 Blood Type Confirm B POSITIVE 06/26/17 16:45 Antibody Screen Negative 06/26/17 16:05 BBK History Checked No verified bt 06/26/17 16:05 - Hospital Course Hospital Course: Pt is an 82 yo male with PMH of HTN, DM, bronchitis, pneumonia, DVT on coumadin , bladder CA, and gastric carcinoma currently being treated with chemo and radiation presented with a 7 day history of mid-sternal chest pain. Pt stated that pain does not radiate and is intermittent with increased frequency over the last 2 days. Pt also complained of dysphagia. Pt stated that difficulty in swallowing started about 3 weeks prior, which was concurrent with the start of his radiation therapy for gastric CA. The gastric CA was diagnosed 1 year ago, in which he is being treated with chemo and radiation. Pt also stated that epigastric pain is worsened by PO intake of both solids and liquids and subsequently has eaten less over the last 3 weeks. The patient was admitted for evaluation of chest pain to rule out ACS and dysphagia. During hospital course, CXR was significant for unfolding of the aorta. Follow up chest CT showed mildly dilated and tortuous aorta. Results were discussed with patient and advised routine monitoring with his PMD. INR was supratherapeutic, coumadin was held, and resumed on discharge when INR was therapeutic. Cardiac enzymes were negative x3. EKG was NSR with PAC. Cardio was consulted, recommendations were appreciated. Acute coronary syndrome was ruled out. GI was consulted and advised upper endoscopy. Prior to EGD, 2 units of FFP was given due to supratherapeutic INR. EGD showed LA grade D erosive esophagitis, presumably due to radiation, gastritis, and gastric mucosal atrophy. Due to these findings, GI recommended soft diet, protonix, and carafate. As the patient was medically stable after EGD, he was discharged. Patient was advised to follow up with his oncologist as scheduled on 07/02/16, until then, as per his oncologist, no radiation therapy. Patient was given a copy of the EGD report to take with him to his visit. Pt was also advised to follow up with his PMD within 1 week. Pt was given a prescription for Protonix and Carafate and advised to resume all other home medications. Discharge Diagnosis 1. 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 Gastritis 3. Chest pain likely 2/2 gastritis, ACS ruled out 4. Supratherapeutic INR Discharge Medications - Protonix 40 mg PO daily x30 days - Carafate 1 gm PO QID x30 days - Home medications resumed as per MAR Discharge Exam - Head Exam Head Exam: NORMAL INSPECTION - Eye Exam Eye Exam: Normal appearance - ENT Exam ENT Exam: Normal Exam - Neck Exam Neck exam: Normal Inspection - Respiratory Exam Respiratory Exam: Clear to PA & Lateral. absent: Accessory Muscle Use, Rales, Rhonchi, Wheezes, Respiratory Distress - Cardiovascular Exam Cardiovascular Exam: RRR, +S1, +S2. absent: Diastolic murmur, Gallop, Rubs, Systolic Murmur - GI/Abdominal Exam GI & Abdominal Exam: Soft. absent: Diminished Bowel Sounds, Guarding, Rebound, Tenderness - Extremities Exam Extremities exam: normal inspection - Back Exam Back exam: NORMAL INSPECTION - Neurological Exam Neurological exam: Alert, Oriented x3 - Psychiatric Exam Psychiatric exam: Normal Affect, Normal Mood - Skin Skin Exam: Dry, Intact, Normal Color, Warm Discharge Plan - Discharge Medications Prescriptions: Pantoprazole [Protonix EC Tab] 40 mg PO 0600,1600 30 Days ect Sucralfate [Carafate Oral Susp] 1 gm PO 0630,1130,1630,2200 30 Days [facility] [place] Follow Up Plan Condition: GOOD Disposition: HOME/ ROUTINE Instructions: Chest Pain (DC), Chest Pain (GEN), Viral Pneumonia (GEN), Gastritis (DC), Gastritis (GEN), Cigarette Smoking and Your Health (GEN), Influenza Vaccine (DC), Upper Endoscopy (DC), Acute Abdominal Pain (DC), Acute Abdominal Pain (GEN), Esophagitis (DC), Esophagitis (GEN) Additional Instructions: 1. Follow up with Dr. Matos, oncologist as scheduled on Saturday. Until then, no radiation therapy. 2. Follow up with PMD within 1 week for medical management 3. Take Protonix and Carafate as prescribed 4. May resume other medications as prescribed 5. Return to ED if symptoms worsen Referrals: Nohemi Marie MD [Primary Care Provider] - Darshan Bone MD [Staff Provider] - <Skip Noyola - Last Filed: 06/28/17 07:58> Provider - Provider Date of Admission: 06/26/17 11:57 Attending physician: Skip Noyola MD [facility] Course - Lab Results Lab Results: Most Recent Lab Values WBC 4.1 10^3/ul (4.5-11.0) L D 06/27/17 05:05 RBC 3.98 10^6/uL (3.5-6.1) 06/27/17 05:05 Hgb 12.3 g/dL (14.0-18.0) L 06/27/17 05:05 Hct 36.7 % (42.0-52.0) L 06/27/17 05:05 MCV 92.2 fl (80.0-105.0) 06/27/17 05:05 MCH 30.9 pg (25.0-35.0) 06/27/17 05:05 MCHC 33.5 g/dl (31.0-37.0) 06/27/17 05:05 RDW 14.7 % (11.5-14.5) H 06/27/17 05:05 Plt Count 88 10^3/uL (120.0-450.0) L 06/27/17 05:05 MPV 9.4 fl (7.0-11.0) 06/27/17 05:05 Gran % 61.3 % (50.0-68.0) 06/25/17 12:40 Lymph % (Auto) 10.1 % (22.0-35.0) L 06/25/17 12:40 Mesa % (Auto) 14.0 % (1.0-6.0) H 06/25/17 12:40 Eos % (Auto) 14.3 % (1.5-5.0) H 06/25/17 12:40 Baso % (Auto) 0.3 % (0.0-3.0) 06/25/17 12:40 Gran # 2.01 (1.4-6.5) 06/25/17 12:40 Lymph # 0.3 (1.2-3.4) L 06/25/17 12:40 Mesa # 0.5 (0.1-0.6) 06/25/17 12:40 Eos # 0.5 (0.0-0.7) 06/25/17 12:40 Baso # 0.01 K/mm3 (0.0-2.0) 06/25/17 12:40 PT 28.4 SECONDS (9.4-12.5) H 06/27/17 05:05 INR 2.53 (0.93-1.08) H 06/27/17 05:05 APTT 35.9 Seconds (25.1-36.5) 06/27/17 05:05 Sodium 144 mmol/L (132-148) 06/27/17 05:05 Potassium 4.7 mmol/L (3.6-5.0) 06/27/17 05:05 Chloride 109 mmol/L (98-107) H 06/27/17 05:05 Carbon Dioxide 27 mmol/L (21-33) 06/27/17 05:05 Anion Gap 13 (10-20) 06/27/17 05:05 BUN 22 mg/dL (7-21) H 06/27/17 05:05 Creatinine 1.4 mg/dl (0.8-1.5) 06/27/17 05:05 Est GFR ( Amer) 59 06/27/17 05:05 Est GFR (Non-Af Amer) 48 06/27/17 05:05 POC Glucose (mg/dL) 92 mg/dL (65-110) 06/27/17 07:23 Random Glucose 109 mg/dL (70-110) 06/27/17 05:05 Hemoglobin A1c 6.3 % (4.2-6.5) 06/25/17 15:30 Calcium 9.2 mg/dL (8.4-10.5) 06/27/17 05:05 Total Bilirubin 0.5 mg/dL (0.2-1.3) 06/27/17 05:05 AST 30 U/L (17-59) 06/27/17 05:05 ALT 33 U/L (7-56) 06/27/17 05:05 Alkaline Phosphatase 70 U/L (38-126) 06/27/17 05:05 Lactate Dehydrogenase 760 U/L (333-699) H 06/25/17 11:35 Total Creatine Kinase 175 U/L (35-230) 06/25/17 11:35 Troponin I < 0.01 ng/mL D 06/26/17 05:50 Total Protein 6.6 g/dL (5.8-8.3) 06/27/17 05:05 Albumin 3.5 g/dL (3.0-4.8) 06/27/17 05:05 Globulin 3.1 gm/dL 06/27/17 05:05 Albumin/Globulin Ratio 1.1 (1.1-1.8) 06/27/17 05:05 Triglycerides 59 mg/dL (35-160) 06/25/17 11:45 Cholesterol 108 mg/dL (130-200) L 06/25/17 11:45 LDL Cholesterol Direct 39 mg/dL (0-129) 06/25/17 11:45 HDL Cholesterol 50 mg/dL (29-60) 06/25/17 11:45 TSH 3rd Generation 2.09 mIU/mL (0.46-4.68) 06/25/17 11:45 Blood Type B POSITIVE 06/26/17 16:05 Blood Type Confirm B POSITIVE 06/26/17 16:45 Antibody Screen Negative 06/26/17 16:05 BBK History Checked No verified bt 06/26/17 16:05 Attending/Attestation - Attestation I have personally seen and examined this patient.: Yes I have fully participated in the care of the patient.: Yes I have reviewed all pertinent clinical information, including history, physical exam and plan: Yes Notes (Text): I have seen and examined the patient at bedside. 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 He feels as if he is swallowing a walnut. Patient states that he has to drink lot of water or liquids to push food down. EKG revealed PAC. Cardiac enzymes negative. Echo revealed diastolic dysfunction. Cardio consult appreciated. Patient underwent endoscopy which showed LA Grade D erosive esophagitis secondary to radiation. Start protonix and carafate. Copy of endoscopy report given to the patient. Plan to hold radiation for 1 week. Upon discharge patient will follow up with Dr Raoul Sultana and Dr Kath Matos. Dr Skip Noyola
[2017-06-27 14:37] VITALS: BP 121/79; PULSE 100
[2017-06-27] MEDS ORDERED: Sucralfate 1 gm/10 ml Oral Susp UD PO SCH (16:30)
--- NOTE | 2017-06-28 08:22 | PN ---
DATE: 06/27/2017 LOCATION: The patient is in room 575, bed 2. REASON FOR CONSULTATION AND FOLLOWUP: Chest pain, carcinoma of the stomach and hypertension. SUBJECTIVE: The patient lying flat with out any chest pain, shortness of breath or palpitation. He still complains of off and on pain, which start from lower one third of the sternum and radiates to the epigastrium and it is also not related to . PHYSICAL EXAMINATION: VITAL SIGNS: Blood pressure of 154/88, respirations of 20, pulse of 77, and temperature of 98.3. HEENT: Head is normocephalic. Eyes: Pupils are normal. Conjunctivae slightly pale. NECK: JVP low. Carotids are equal. THORAX: AP diameter normal. LUNGS: Clear. CARDIOVASCULAR: S1 and S2. Systolic murmur. ABDOMEN: Soft. Slight tenderness in the epigastric area where he has pain. Bowel sounds are normal. EXTREMITIES: No clubbing. No cyanosis. LABORATORY DATA: WBC of 4.1, hemoglobin of 12.3, hematocrit of 36.7, and platelets 88. Prothrombin time is 28.4, INR is 2.53, and PTT is 35.9. Sodium of 144, potassium of 4.7, BUN of 22, creatinine of 1.4, and random sugar 92. AST and ALT are normal. Total protein and albumin normal. The patient had an echocardiogram on 06/26/2017, which showed normal size LV, mild concentric left ventricular hypertrophy, LV systolic function normal, LV ejection fraction 65%, grade I abnormal relaxation pattern, moderate to severe tricuspid regurgitation, moderate to severe pulmonary hypertension with the RVSP of 56 mmHg, , pulmonary hypertension. Aortic root is mildly enlarged. DIAGNOSES: Pain in chest in lower one third of the sternum and radiates to the epigastrium. It starts at the lower one third of the sternum and slowly proceed to the epigastrium and when the pain reaches there, it disappears and pain usually last for 1 minute and has no relation to , anemia, thrombocytopenia, leukopenia, hypertension, history of diabetes mellitus, history of phlebitis in the leg, and hypercholesterolemia. PLAN: The patient is scheduled for endoscopy today. The patient is on aspirin 81 daily, atorvastatin 40 daily, Neurontin 100 b.i.d., amlodipine 5 daily, and Singulair 10 mg daily. The patient also receives doses of vitamin K. Call PT and INR in preparation for endoscopy. We will continue present therapy. From cardiac point of view, the patient can go for endoscopy as moderated risk, there is no absolute contraindication for the procedure. Carrie Haley MD
== END 2017-06-27 16:19 | disposition home or self-care (01) | DRG 392 ==
LOC: ED 10:38 → OBSVTOIN 13:35 → UNDOADMOB 13:35 → ERH 13:35 → INTOOBSV 13:35 → ERH 13:57 → 3RSO 15:08 → 5RSO 06-26 11:57 → 3RSO 06-26 11:57 → ERH 06-26 11:57 → OBSVTOIN 06-26 11:57 → 3RSO 06-26 16:56 → 5RSO 06-26 16:56
PROVIDERS: ADMIT Hospitalist; ATTEND Hospitalist
PROC: 30233K1 Transfusion of Nonautologous Frozen Plasma into Peripheral Vein, Percutaneous Approach (ICD-10-PCS; 2017-06-27)
PROC: 0DJ08ZZ Inspection of Upper Intestinal Tract, Via Natural or Artificial Opening Endoscopic (ICD-10-PCS; principal; 2017-06-27 11:45)
DX: K20.8 Other esophagitis (principal); C16.9 Malignant neoplasm of stomach, unspecified; E11.22 Type 2 diabetes mellitus with diabetic chronic kidney disease; I27.20 Pulmonary hypertension, unspecified; I07.1 Rheumatic tricuspid insufficiency; K22.4 Dyskinesia of esophagus; I12.9 Hypertensive chronic kidney disease with stage 1 through stage 4 chronic kidney disease, or unspecified chronic kidney disease; K29.70 Gastritis, unspecified, without bleeding; N18.9 Chronic kidney disease, unspecified; R79.1 Abnormal coagulation profile; Z85.028 Personal history of other malignant neoplasm of stomach; Y84.2 Radiological procedure and radiotherapy as the cause of abnormal reaction of the patient, or of later complication, without mention of misadventure at the time of the procedure; Z85.51 Personal history of malignant neoplasm of bladder; Z86.718 Personal history of other venous thrombosis and embolism; Z79.01 Long term (current) use of anticoagulants; Z79.82 Long term (current) use of aspirin; Z79.899 Other long term (current) drug therapy; Z86.72 Personal history of thrombophlebitis; Z87.891 Personal history of nicotine dependence; Z92.21 Personal history of antineoplastic chemotherapy; Z92.3 Personal history of irradiation; K59.00 Constipation, unspecified